=== PATIENT | male | born 1955 | race Caucasian/White ===

== ENCOUNTER 2018-03-01 18:46 | Emergency (ER) | payer SELFPAY ==
[~2018-03-01] VITALS: Ht 175.3 cm; Wt 88.2 kg
[2018-03-01 20:32] VITALS: BP 133/95
== END 2018-03-01 20:32 | disposition home or self-care (01) ==
LOC: ED 18:46
DX: S39.012A Strain of muscle, fascia and tendon of lower back, initial encounter (principal); X58.XXXA Exposure to other specified factors, initial encounter; Y93.89 Activity, other specified; Y92.89 Other specified places as the place of occurrence of the external cause; Y99.8 Other external cause status
CPT/HCPCS: J1885